=== PATIENT | female | born 1970 ===

== ENCOUNTER 2020-11-08 10:32 | Observation (INO) ==
--- NOTE | 2020-10-21 14:52 | PAT Medication Instructions ---
Medication Instructions Date of Service October 21, 2020 Home Medications citalopram 40 mg tablet 40 mg PO QAM losartan 25 mg tablet 25 mg PO QAM secukinumab 150 mg/mL subcutaneous pen injector 300 mg SUBCUT MONTHLY Medical Marijuana 1 tab PO BID cholecalciferol (vitamin D3) 50 mcg PO QAM ASK your prescriber and surgeon secukinumab 150 mg/mL subcutaneous pen injector 300 mg SUBCUT MONTHLY DO NOT take the morning of surgery losartan 25 mg tablet 25 mg PO QAM Medical Marijuana 1 tab PO BID cholecalciferol (vitamin D3) [Vitamin D3] 50 mcg PO QAM Take morning of surgery With a small sip of water, OTHERWISE NOTHING TO EAT OR DRINK AFTER MIDNIGHT: citalopram 40 mg tablet 40 mg PO QAM Take evening before surgery Medical Marijuana 1 tab PO BID Other Notes If you have any questions please call us at [phone] or [phone] or [phone] or [phone]
--- NOTE | 2020-10-22 13:30 | Anesthesiology Consultation ---
Date of Service October 22, 2020 Assessment & Plan (1) Encounter for pre-operative examination: COVID Status: As of 10/22 assessment, patient denies travel to endemic area, known exposure/sick contacts, or symptoms of COVID19. Patient instructed that they and their household members must follow strict social distancing guidelines, wear a mask in public and avoid travel/events/gatherings for 14 days prior to surgery. Preoperative COVID19 testing to be completed prior to surgery per surgeon's arrangements. 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 *H/o PONV with GA* Chart Review Chart Review: Acceptable Risk for Surgery and Patient seen in Pre Admission Testing Teaching & Discussion Instructed NPO after midnight before surgery, except medications with 15 cc of water. Medication instructions provided according to the PAT guidelines. History Surgery Operation Date: 11/08/20 12:30 Proposed Procedures p Right Anterior Total Hip Arthroplasty - Reji Trejo DO Height/Weight Height: 5 ft 4 in Weight: 92.2 kg Allergies Allergy/AdvReac Type Severity Reaction Status Date / Time No Known Allergies Allergy Verified 10/01/20 15:28 Medications Home Medications Medication Instructions Recorded Confirmed Last Taken citalopram 40 mg tablet 40 mg PO QAM 09/13/20 10/01/20 Unknown losartan 25 mg tablet 25 mg PO QAM 09/13/20 10/01/20 Unknown secukinumab 150 mg/mL subcutaneous 300 mg SUBCUT MONTHLY ml 09/13/20 10/01/20 Unknown pen injector Medical Marijuana 1 tab PO BID 10/01/20 10/01/20 Unknown cholecalciferol (vitamin D3) 50 mcg PO QAM 10/01/20 10/01/20 Unknown [Vitamin D3] Past Medical History Medical History Anxiety Chronic back pain Depression Hypertension Migraine Nausea and vomiting after administration of anesthetic agent Osteoarthritis Psoriatic arthritis Exercise / Class Metabolic Activity II 4-5 Yardwork/Stairs/Walk up hill (Denies CP or SOB with 1 FOS) Past Surgical History Surgical History H/O bilateral oophorectomy History of hysterectomy History of laparoscopy several History of tonsillectomy History of tooth extraction wisdom teeth and others Past Anesthesia History No Hx of Anesthesia Complications (other than PONV) and No Family Hx of Anesthesia Complications History of PONV No Hx of Motion Sickness and History of PONV (severe, many times) Social History Smoking Status: Current every day smoker tobacco type: cigarettes Smoking cigarettes per day: almost 1 ppd Do You Dip or Chew Tobacco: No Hx Alcohol Use: No Hx Substance Use: Yes substance use type: marijuana Substance Use Type Other:: medical marijuana once daily Review of Systems Pt denies any recent chest pain, shortness of breath, palpitations, cough, fever, URI, or uncontrolled acid reflux. Physical Exam Vital Signs BP: 153/77 P: 69bpm SPO2: 98% RA T: 98.8 F R: 16 ENMT Mouth: + chipped teeth (small chip in upper R incisor); no loose teeth Thyromental Distance: > or= 3.5 Finger Breadths Mallampati Class: II Neck + short neck; neck extension not limited Respiratory normal respiratory effort, lungs clear to auscultation Cardiovascular Rate/Rhythm: regular rate and regular rhythm Heart Sounds: no murmur Vessels: no carotid bruit Testing Laboratory Results 10/22/20 13:46 10/22/20 13:46 PT 10.7 Seconds (9.0-12.0) 10/22/20 13:46 INR 1.1 (0.9-1.1) 10/22/20 13:46 APTT 26.1 Seconds (21.0-31.0) 10/22/20 13:46 Blood Type O Positive 10/22/20 13:46 Antibody Screen NEGATIVE 10/22/20 13:46 Electrocardiogram Date: 10/22/20 Findings: + SB @ (49bpm) Chest X-Ray Date: 10/22/20 Findings: + NAD
--- NOTE | 2020-10-22 14:26 | XRay Report ---
XR chest Pre-admission PA/Lat CLINICAL HISTORY: Preoperative chest COMPARISON STUDY: No previous studies for comparison. FINDINGS: The cardiac and mediastinal contours are normal. There is no evidence of focal pulmonary co nsolidation. There is no evidence of failure. No pleural effusions are visualized.[Degenerative bearden es are present within the dorsal spine. IMPRESSION: No active disease in the chest. ACT 112: Negative or not required by law. Electronically signed by: Dmitry Santana M.D. 10/22/2020 2:25 PM
[2020-10-22 14:44] LABS: Basophils # (auto) 0.03 K/uL (0-0.2); Basophils % (auto) 0.3 %; Eosinophils # (auto) 0.19 K/uL (0-0.5); Eosinophils % (auto) 1.7 %; Hematocrit (blood only) 34.3 % (37-47); Hemoglobin 12.1 g/dL (12.0-16.0); Immature Granulocytes # (auto) 0.08 K/uL (0.00-0.02); Immature Granulocytes % (auto) 0.7 %; Lymphocytes # (auto) 3.66 K/uL (1.2-3.4); Lymphocytes % (auto) 32.3 %; Mean Corpuscular Hemoglobin 30.7 pg (25-34); Mean Corpuscular Hgb Conc 35.3 g/dL (32-36); Mean Corpuscular Volume 87.1 fL (80-100); Mean Platelet Volume 10.7 fL (7.4-10.4); Monocytes % (auto) 6.2 %; Neutrophils # (auto) 6.68 K/uL (1.4-6.5); Neutrophils % (auto) 58.8 %; Platelet Count 333 K/uL (130-400); RDW Coefficient of Variation 13.5 % (11.5-14.5); RDW Standard Deviation 43.3 fL (36.4-46.3); Red Blood Count 3.94 M/uL (4.2-5.4); White Blood Count 11.34 K/uL (4.8-10.8)
[2020-10-22 14:54] LABS: BUN Creatinine Ratio 11.5 (10-20); Calcium 8.9 mg/dl (8.5-10.1); Creatinine Clr Calc Pharmacy 111.1 ml/min; Est GFR (African American) 119.1; Est GFR (Non-African American) 102.8; Potassium 3.6 mmol/L (3.5-5.1)
[2020-10-22 14:56] LABS: INR 1.1 (0.9-1.1); Partial Thromboplastin Time 26.1 Seconds (21.0-31.0); Prothrombin Time 10.7 Seconds (9.0-12.0)
--- NOTE | 2020-10-22 16:34 | Electrocardiogram Report ---
Test Reason : Blood Pressure : / mmHG Vent. Rate : 049 BPM Atrial Rate : 049 BPM P-R Int : 150 ms QRS Dur : 076 ms QT Int : 420 ms P-R-T Axes : 059 050 055 degrees QTc Int : 379 ms Sinus bradycardia Otherwise normal ECG No previous ECGs available Confirmed by Francisco Arellano ([id number]) on 10/22/2020 4:33:52 PM Referred By: Reji Trejo Confirmed By:Francisco Arellano
--- NOTE | 2020-11-07 11:55 | History & Physical Report ---
Date of Service November 07, 2020 Assessment & Plan (1) Osteoarthritis of right hip: We will proceed with a right anterior total hip arthroplasty. Postoperatively she will be started on aspirin for DVT prophylaxis and kept overnight in the hospital for postoperative medical management. She plans to use home nursing in [place] upon discharge. History of Present Illness Chief Complaint: Osteoarthritis of the right hip. Primary Care Provider: Apple Angel Regis Diaz is a pleasant 50-year-old female who is been dealing with chronic increasing right hip and groin pain. X-rays and clinical examination have been diagnostic for advanced osteoarthritis of the right hip. After failing conservative treatment, she has elected proceed with a right anterior total hip arthroplasty.. Allergies Allergy/AdvReac Type Severity Reaction Status Date / Time No Known Allergies Allergy Verified 10/01/20 15:28 Home Medications Medication Instructions Recorded Confirmed Type citalopram 40 mg tablet 40 mg PO QAM 09/13/20 10/01/20 History losartan 25 mg tablet 25 mg PO QAM 09/13/20 10/01/20 History secukinumab 150 mg/mL subcutaneous 300 mg SUBCUT MONTHLY ml 09/13/20 10/01/20 History pen injector Medical Marijuana 1 tab PO BID 10/01/20 10/01/20 History cholecalciferol (vitamin D3) 50 mcg PO QAM 10/01/20 10/01/20 History [Vitamin D3] Past Med/Surg History Medical History Anxiety Chronic back pain Depression Hypertension Migraine Osteoarthritis Psoriatic arthritis Surgical History H/O bilateral oophorectomy History of hysterectomy History of laparoscopy several History of tonsillectomy History of tooth extraction wisdom teeth and others Nausea and vomiting after administration of anesthetic agent Social History Smoking Status: Current every day smoker Cigarettes Per Day: almost 1 ppd; Second Hand Exposure: Yes; Hx Alcohol Use: No Hx Substance Use: Yes Substance Use Type Other:: medical marijuana once daily Preferred Language: Korean Communication Ability: Effective Extractor Filler Required: No Beliefs That Will Affect Care: None Current Living Situation: Alone Feels Safe at Home: Yes Assistive Devices: None Review of Systems All systems reviewed & are unremarkable except as noted in HPI & below. Physical Exam On physical examination of the right hip, she ambulates independently. She has pain with range of motion of her hip. She has pain with forced internal and external rotation. All of her pain is located in her groin.. Constitutional WD/WN, vitals as above Eyes PERRL, conjunctivae normal, anicteric sclerae ENMT external ear and nose normal, oropharynx normal Neck trachea midline, no thyromegaly Respiratory normal respiratory effort Cardiovascular RRR, no murmur, no edema Gastrointestinal (Abdomen) normal bowel sounds, soft, nontender, no hepatosplenomegaly Psychiatric A+Ox3, euthymic affect Results & Data Results & Data Laboratory Results . Diagnostic Findings X-rays of the right hip and pelvis show advanced osteoarthritis with joint space narrowing, osteophyte formation, and [id number] articulation. PG Care Time/CCT Total # of Minutes Spent Total Time Spent with Patient: Total time spent is greater than 50% in coordination of care (as documented) at patient's floor/unit and/or counseling patient: Coding Level of Care Code None Diagnoses Osteoarthritis of right hip M16.11
[~2020-11-08 10:32] MED LIST: ACETAMINOPHEN 500 MG TAB PO SCH; BUPIVACAINE 0.5 % 5 MG/1 ML PF 10ML VIAL ONE; FAMOTIDINE 20 MG TAB PO SCH; GABAPENTIN 900 MG DOSE PO SCH; LR 15ML/HR IV SCH; LR 500ML BOLUS, THEN 15ML/HR IV SCH; LR 60ML/HR IV SCH; ROPIVACAINE 0.5% HCL/PF 150 MG, BUPIVACAINE 0.75% MPF 20 ML, EPINEPHrine 30MG/30ML (OR ... INSTIL SCH; TRANEXAMIC ACID 1,000 MG **IV Intra-op IV SCH; TRANEXAMIC ACID 1,000 MG **IV Pre-op IV SCH; ceFAZolin 2000MG 2,000 MG/15 ML SYR IV SCH; dexAMETHasone 4 MG TAB PO SCH
--- NOTE | 2020-11-08 10:43 | History & Physical Bridge Note ---
Date of Service November 08, 2020 History & Physical Bridge Note I have examined the patient, reviewed the History & Physical and in the interval since the performance of the History & Physical I have noted the following changes of clinical significance: no changes noted
[2020-11-08] MEDS ORDERED: MIDAZOLAM HCL 1 MG/ML 2ML VIAL ONE ×2 (12:17)
[2020-11-08] MEDS ORDERED: ePHEDrine sulfate 50 MG/ML AMP IV PRN (12:20)
[2020-11-08] MEDS ORDERED: ONDANSETRON INJ 2 MG/ML 2 ML VIAL IV PRN ×2 (12:20→16:15)
[2020-11-08] MEDS ORDERED: HYDROmorphone INJ 1 MG/ML SYRINGE IV PRN (12:20)
[2020-11-08] MEDS ORDERED: ATROPINE SULFATE 0.1 MG/ML 10ML SYR IV PRN (12:20)
[2020-11-08] MEDS ORDERED: KETOROLAC 30 MG/ML VIAL IV PRN (12:20)
[2020-11-08] MEDS ORDERED: ORTHO JOINT ANESTHETIC ONE (12:22)
[2020-11-08] MEDS ORDERED: LIDOCAINE 2% 2 ML VIAL/AMP(20MG/ML) INFIL ONE (13:06)
[2020-11-08] MEDS ORDERED: PROPOFOL IV EMULSION 10 MG/ML 20 ML VIAL IV ONE ×2 (13:06→13:53)
[2020-11-08] MEDS ORDERED: PHENYLEPHRINE 100MCG/ML 5ML SYR ONE (13:29)
--- NOTE | 2020-11-08 14:04 | Operative Report ---
PG Post Operative Report Pre & Post Diagnosis Operation Date: 11/08/20 13:30 Pre-Op Diagnosis: Right Hip Degenerative Joint Disease Post-Op Diagnosis: Right Hip Degenerative Joint Disease I identified the patient and participated in the time-out.: Yes Procedure Operation Date: 11/08/20 13:30 Actual Procedures p Right Anterior Total Hip Arthroplasty(Right) - Reji Trejo DO Surgeon Reji Trejo DO Director Appointment Reji Canales PAC Estimated Blood Loss 250 Findings Consistent with Post-Op Diagnosis Specimens Right femoral head Complications none Disposition Disposition: Recovery Room Indications Almita is a pleasant 50-year-old female who is been doing with chronic increasing right hip and groin pain. X-rays and clinical examination were diagnostic for advanced osteoarthritis of the right hip. After failing conservative treatment, she elected proceed with a right anterior total hip arthroplasty. Description of Procedure Implants used I used a Biomet Taperloc total hip arthroplasty system with a size 8 high offset Taperloc stem, a 50 mm G7 cup with a 25mm screw, an E1 polyethylene liner, a 36 mm ceramic head with a -6 neck. Montse arrived at the hospital for the above procedure. She was seen in the preoperative holding area and the operative extremity was identified and signed. She was given a spinal anesthetic, a preoperative antibiotic, and TXA. She was then taken back to the operating room and laid on the table in the supine position. She was given basic sedation. The operative leg was secured to a Puristst leg positioner. The hip was then prepped and draped in sterile fashion. A timeout was done and the patient and the operative extremity was properly identified. An anterior approach was used. Dissection was taken down through the fascia and the tensor muscle belly was retracted laterally and the rectus was retracted medially. The circumflex vessels were identified and ligated. The capsule was then incised and tagged for later repair. The femoral neck was then cut and the femoral head was removed. The acetabulum was exposed. Time was spent doing a complete circumferential labral release. Sequential reaming of the acetabulum up to a size 49 reamer was done. Final reamings were done under fluoroscopy to ensure appropriate version. A Biomet 50 mm G7 cup was then impacted into place. A single 25 mm screw was placed. The E1 polyethylene liner was then snapped into place. Surrounding soft tissues were then injected with 100 cc of an orthopedic pain control cocktail. The proximal femur was then exposed. Sequential broaching up to a size 8 broach was done. Off that broach a size 36 head with a -6 neck was trialed. The hip was reduced and fluoroscopic images showed anatomic alignment of the implants in acceptable length. The broach was removed. The final size 8 high offset Taperloc stem was then impacted into place. A ceramic 36 mm head with a -6 neck was then impacted onto the stem and the hip was reduced. Final fluoroscopic images showed anatomic alignment of the hip. The capsule was then closed with #1 Vicryl suture. A dilute betadyne lavage was then done for 3 minutes. The joint was then irrigated with normal saline solution. The fascia was closed with #1 PDS suture. Skin was closed with 2-0 Vicryl, marcos, and a Silverlon dressing. She was then transferred to a hospital bed and taken to the post anes thesia care unit in stable condition. She tolerated the procedure well. Reji Canales PA-C, was present for the entire procedure. He was critical for patient positioning, prepping, draping, retraction exposure, wound closure and application of sterile dressing. I attest to the content of the Intraoperative Record and any orders documented therein. Any exceptions are noted below.
--- NOTE | 2020-11-08 14:16 | Fluoroscopy Report ---
FL hip RT 1V HISTORY: 50 years-old Female RIGHT ANTERIOR HIP right hip total joint arthroplasty COMPARISON: None TECHNIQUE: 2 fluoroscopic views of the right hip were obtained utilizing 21.8 seconds fluoroscopy jose e FINDINGS: Right hip total joint arthroplasty demonstrates satisfactory alignment. No acute fracture or unexpect ed opaque foreign body identified. Expected postoperative soft tissue swelling with deep tissue air. IMPRESSION: Fluoroscopic assistance as above. ACT 112: Negative or not required by law. The above report was generated using voice recognition software. It may contain grammatical, syntax o r spelling errors. Electronically signed by: Idris Gray M.D. 11/08/2020 2:15 PM
--- NOTE | 2020-11-08 14:49 | XRay Report ---
AP PELVIS, CROSSTABLE LATERAL RIGHT HIP History: Right total hip arthroplasty. Degenerative arthritis. Postop. FINDINGS: The patient is status post a right total hip arthroplasty. The hardware is intact. No fract ure or dislocation. Skin marcos are in place. IMPRESSION: Right total hip arthroplasty. No evidence for hardware complication ACT 112: Negative or not required by law. Electronically signed by: Ramesh Alberts M.D. 11/08/2020 2:48 PM
[2020-11-08] MEDS ORDERED: MAGNESIUM HYDROXIDE SUSP 30 ML UDC PO PRN (16:15)
[2020-11-08] MEDS ORDERED: METOCLOPRAMIDE HCL INJ 5 MG/ML 2 ML VIAL IV PRN (16:15)
[2020-11-08] MEDS ORDERED: bisacodyL 10 MG SUPP PR PRN (16:15)
[2020-11-08] MEDS ORDERED: NALOXONE HCL 0.4 MG/1 ML VIAL/CARP IV PRN (16:15)
[2020-11-08] MEDS ORDERED: SECUKINUMAB 150 MG/ML SQ SCH (16:15)
[2020-11-08] MEDS ORDERED: HYDROmorphone INJ 0.5 MG/0.5 ML SYR IV PRN (16:15)
--- NOTE | 2020-11-08 16:16 | Anesthesiology Progress Note ---
Date of Service November 08, 2020 Anesthesia Post Procedure Vital Signs Vital Signs: Temp Pulse Pulse Resp BP Pulse Ox 11/08/20 15:35 59 L 17 109/63 93 11/08/20 15:20 57 L 15 115/72 95 11/08/20 15:10 36.7 C 58 L 18 112/74 95 11/08/20 15:00 64 15 106/73 95 11/08/20 14:50 64 16 105/70 95 11/08/20 14:40 70 19 103/73 93 11/08/20 14:30 36.4 C L 62 17 108/69 95 11/08/20 12:00 63 18 122/84 96 11/08/20 11:25 37.4 C 74 18 115/69 97 Pain Intensity Right Hip: Pain Intensity: 2 Transfer of Care Handoff Completed per policy Notes Mental Status: alert / awake / arousable Patient Amnestic to Procedure: Yes Nausea / Vomiting: adequately controlled Pain: adequately controlled Airway Patency, RR, SpO2: stable & adequate BP & HR: stable & adequate Hydration State: stable & adequate Anesthetic Complications: no major complications apparent
[2020-11-08] MEDS: SODIUM CHLORIDE 0.9% 1000ML 1,000 ML IV SCH (17:12)
[2020-11-08] MEDS: KETOROLAC 30 MG/ML VIAL IV SCH ×2 (17:13→23:05)
[2020-11-08] MEDS ORDERED: SENNA 8.6 MG TAB PO SCH (21:00)
[2020-11-08] MEDS: ceFAZolin 2000MG 2,000 MG/15 ML SYR IV SCH (21:01)
[2020-11-08] MEDS: DOCUSATE SODIUM 100 MG CAP PO SCH (21:01)
[2020-11-08] MEDS: ASPIRIN 81 MG ECTAB PO SCH (21:02)
[2020-11-08] MEDS: ACETAMINOPHEN 500 MG TAB PO SCH (21:03)
[2020-11-09] MEDS: oxyCODONE HCL IR 5 MG TAB (IMMEDIATE RELEASE) PO PRN ×2 (00:37→11:02)
[2020-11-09] MEDS: SODIUM CHLORIDE 0.9% 1000ML 1,000 ML IV SCH (03:32)
[2020-11-09] MEDS: ceFAZolin 2000MG 2,000 MG/15 ML SYR IV SCH (04:49)
[2020-11-09] MEDS: KETOROLAC 30 MG/ML VIAL IV SCH (05:45)
[2020-11-09] MEDS: ACETAMINOPHEN 500 MG TAB PO SCH (05:45)
--- NOTE | 2020-11-09 07:13 | Orthopedic Progress Note ---
Date of Service November 09, 2020 Assessment & Plan (1) Status post right hip replacement: Overall she is doing very well. She is now having much pain in the right hip. The ankle dorsiflexion should return throughout the day today. She will be seen by physical therapy today for ambulation and range of motion exercises. She is on aspirin for DVT prophylaxis. She can be discharged home later today. She will follow-up with orthopedics in 2 weeks. Shi Recio was seen and examined at bedside this morning. Overall she is doing very well. She not having much pain in the right leg. The nerve block is still working some. She has been up and ambulating around the hallways. She has no complaints.. Review of Systems All systems reviewed & are unremarkable except as noted in HPI & below. Physical Exam On physical examination of the right leg, her leg lengths are equal. She does not have active dorsiflexion of the right ankle as of yet. The dressing is clean and dry.. Results & Data Results & Data Laboratory Results . Diagnostic Findings Postoperative x-rays of the right hip show the prosthesis to be in anatomic alignment without any evidence of fracture, dislocation, or loosening. PG Care Time/CCT Total # of Minutes Spent Total Time Spent with Patient: Total time spent is greater than 50% in coordination of care (as documented) at patient's floor/unit and/or counseling patient: Coding Level of Care Code 95388 Post Operative Follow-Up Diagnoses Status post right hip replacement Z96.641
--- NOTE | 2020-11-09 07:14 | Discharge Summary ---
Date of Service November 09, 2020 Admission HPI (Per Admitting) Joe is a pleasant 50-year-old female who is been dealing with chronic increasing right hip and groin pain. X-rays and clinical examination have been diagnostic for advanced osteoarthritis of the right hip. After failing conservative treatment, she has elected proceed with a right anterior total hip arthroplasty.. Admission Exam (Per Admitting) On physical examination of the right hip, she ambulates independently. She has pain with range of motion of her hip. She has pain with forced internal and external rotation. All of her pain is located in her groin.. Principal Diagnosis Same as "Discharge Diagnosis" noted below under Discharge Instructions. Discharge Exam On physical examination of the right leg, her leg lengths are equal. She does not have active dorsiflexion of the right ankle as of yet. The dressing is clean and dry.. Discharge Data Procedures Performed Operation Date: 11/08/20 13:30 Actual Procedures p Right Anterior Total Hip Arthroplasty(Right) - Reji Trejo DO Ordered Studies 11/08/20 13:30 FL fluoroscopy <1hr Routine FL hip RT 1V Routine Hospital Course (1) Status post right hip replacement: On November 08, 2020 Montse arrived at [facility] and underwent a right hip replacement without complication. She had a spinal anesthetic. Postoperatively she was started on aspirin for DVT prophylaxis and transferred to the general orthopedic floors. Her hospital course was uneventful. On postop day #1 her vital signs were stable and her pain was well controlled. She was able to participate well with physical therapy doing ambulation and range of motion exercises. She was then discharged home. She will follow-up with orthopedics in 2 weeks. PG Care Time/CCT Total # of Minutes Spent Total Time Spent with Patient: Total time spent is greater than 50% in coordination of care (as documented) at patient's floor/unit and/or counseling patient: Discharge Plan Discharge Items Patient Disposition: Home - Home Health Services Reason For Visit: Right Hip Degenerative Joint Disease Discharge Diagnosis: Right total hip Activity: As commented below Non-emergency contact: Surgeon Call non-emergency contact if: your wound has increased redness and your wound has increased drainage Follow-up/Referrals: Apple Stacy D.O. [Primary Care Provider] - Diet: Regular Addtl Attending Provider Instructions: Activity and Therapy Recommendations: * If you are using [facility] then therapy will be provided at your home until they feel you have accomplished all of your goals. * If you are using [facility] then Physical Therapy will be provided until they feel you are ready to start Outpatient Physical Therapy. * If you are not using home therapy then Outpatient Physical Therapy should start about 3-5 days from your day of surgery. Therapy will last about 6-10 weeks * You were shown a series of exercises in the hospital. Do these exercises three times each day including the exercises you were shown in physical therapy. * Get up and walk several times each day.~ For the first four weeks, try not to stand or walk for more than one hour at a time. If you do stand or walk for more than one hour, you will not hurt anything, but your leg will likely swell.~~ * As you feel comfortable, you may change from the walker or crutches to a cane and~then to independent walking. Medications: * Narcotic You will likely be sent home from the hospital with a prescription for the narcotic pain medication that worked best throughout your stay. * Aspirin Most patients will be required to take Aspirin 81mg twice a day for 6 weeks after surgery. This is obtained [id number] and a prescription is not necessary. * Other medications may be prescribed for specific circumstances. If you have any questions, please call the office at . * Resume previous home medications unless otherwise instructed TEDs/Elastic Stockings: The white elastic stockings help limit swelling and prevent blood clots from forming in your legs. The more you wear them, the more they work. Wear them for six weeks. Dressing Care: Leave the Silverlon dressing in place for 7 days. After 7 days you may remove the dressing. If the incision is not draining then you may leave the marcos open to air. If there is a little bit of drainage or if the marcos are getting stuck on your clothing then cover the incision with a dry dressing. The marcos will be removed at your 2 week follow-up appointment. Showering: You may shower with the Silverlon dressing in place. Do not let the shower spray hit the dressing directly. Pat the Silverlon dressing dry. If the dressing becomes wet underneath, then simply remove the dressing. Keep the incision dry until you are 7 days out from the day of surgery. After 7 days you may remove the Silverlon dressing and shower with the marcos exposed. Let soapy water run over the marcos and pat them dry. Do not scrub or soak the incision. Things To Watch For: * Drainage from the incision site that occurs more than one week after your surgery. * Increased redness at the incision site. * Fever above 102 degrees Fahrenheit. * Unusual chest pain or shortness of breath. * Call [facility] at with any of the above problems Follow-Up Visit: Follow-up with Dr. Trejo's PA (Reji Canales) 2-3 weeks after your day of surgery. He will remove your marcos and answer any questions. If you have any additional questions or concerns, Dr Trejo is usually in the office at the same time and will be available An appointment was probably scheduled when you signed-up for surgery in the office. If you have any questions call Office Instructions: More detailed instructions as well as Frequently Asked Questions were provided in a folder by our office when you signed-up for surgery. Please review these instructions when you get home. If you have any further questions or concerns, please feel free to call the office at [phone] Pending Studies at Discharge: No Stand-Alone Forms: My [facility], Smoking Cessation Medications and DC Order Prescriptions: New oxycodone-acetaminophen [Percocet] 5-325 mg tablet 1 tab PO Q6H PRN (Reason: pain) Qty: 40 RF: 0 Continued losartan 25 mg tablet 25 mg PO QAM RF: 0 citalopram [Celexa] 40 mg tablet 40 mg PO QAM RF: 0 Cosentyx Pen (2 Pens) 150 mg/mL pen injector 300 mg subcut MONTHLY RF: 0 cholecalciferol (vitamin D3) [Vitamin D3] 50 mcg (2,000 unit) Tablet 50 mcg PO QAM RF: 0 Medical Marijuana 1 tab PO BID RF: 0 Discharge Orders: Discharge Order (Routine); Ordered 11/09/20 Ordered By: Reji Trejo Admission Data Admit Date/Time: 11/08/20 14:30 Attending Provider: Reji Trejo Admit Provider: Reji Trejo Primary Care Provider: Apple Stacy
[2020-11-09] MEDS ORDERED: dexAMETHasone 4 MG TAB PO SCH (08:00)
[2020-11-09] MEDS: DOCUSATE SODIUM 100 MG CAP PO SCH (08:48)
[2020-11-09] MEDS: ASPIRIN 81 MG ECTAB PO SCH (08:49)
[2020-11-09] MEDS ORDERED: MULTIVITAMIN TAB PO SCH (09:00)
[2020-11-09] MEDS ORDERED: CITALOPRAM 40 MG TAB PO SCH (09:00)
[2020-11-09] MEDS ORDERED: LOSARTAN POTASSIUM 25 MG TAB PO SCH (09:00)
--- NOTE | 2020-11-09 15:00 | Anesthesiology Progress Note ---
Date of Service November 09, 2020 Anesthesia Post Procedure Vital Signs Vital Signs: Temp Pulse Pulse Resp BP BP Pulse Ox 11/09/20 10:00 36.7 C 55 L 18 115/71 97 11/09/20 07:19 36.7 C 55 L 18 115/71 97 11/09/20 03:29 36.7 C 55 L 16 112/66 96 11/08/20 23:15 37.1 C 66 16 128/75 94 11/08/20 18:54 36.1 C L 63 18 111/60 94 11/08/20 17:56 37.0 C 72 18 114/67 94 11/08/20 16:54 36.5 C 62 18 102/61 94 11/08/20 16:28 36.8 C 66 18 115/72 94 11/08/20 15:55 37.0 C 64 18 112/73 95 11/08/20 15:35 59 L 17 109/63 93 11/08/20 15:20 57 L 15 115/72 95 11/08/20 15:10 36.7 C 58 L 18 112/74 95 11/08/20 15:00 64 15 106/73 95 Pain Intensity Right Hip: Pain Intensity: 3 Notes Mental Status: alert / awake / arousable Nausea / Vomiting: adequately controlled Pain: adequately controlled Airway Patency, RR, SpO2: stable & adequate BP & HR: stable & adequate Hydration State: stable & adequate Neuraxial Anesthesia: was administered and sensory block resolved Anesthetic Complications: no major complications apparent and Pt Satisfied with anesthetic care
== END 2020-11-09 11:52 | disposition home health service (06) ==
LOC: 3E 10:32 → PAT 10:32